=== PATIENT | female | born 1955 | race Caucasian/White ===

== ENCOUNTER → 2024-04-12 11:28 | Outpatient (REF) | payer MEDICARE, OTHER, SELFPAY | LOC: RAD 11:28 | PROVIDERS: ATTENDING PHYSICIAN Family Medicine | DX: Z13.820 Encounter for screening for osteoporosis (principal); Z12.39 Encounter for other screening for malignant neoplasm of breast; M81.0 Age-related osteoporosis without current pathological fracture | CPT/HCPCS: 77080 ==